=== PATIENT | male | born 1965 | race Caucasian/White ===

== ENCOUNTER → 2017-12-08 | Outpatient (CLI) | payer OTHER | LOC: CIMAGING 16:39 | PROVIDERS: ATTEND Family Medicine | DX: M50.321 Other cervical disc degeneration at C4-C5 level (principal); M43.12 Spondylolisthesis, cervical region | CPT/HCPCS: 72050-PO ==

== ENCOUNTER 2018-01-28 05:28 | Day surgery (SDC) | payer OTHER ==
[2018-01-28] MEDS ORDERED: ACETAMINOPHEN 500 MG TAB PO ONE (06:03)
[2018-01-28] MEDS ORDERED: ceFAZolin 2 GM/DEXTROSE 100 ML IV ONE (06:03)
[2018-01-28] MEDS ORDERED: LR 1,000 ML IV ONE (06:04)
[2018-01-28] MEDS ORDERED: LIDOCAINE 1% 300 MG/30 ML SDV ONE (06:32)
[2018-01-28] MEDS ORDERED: BUPIVACAINE 0.25% 10 ML SDV ONE ×2 (06:33→06:53)
--- NOTE | 2018-01-28 06:39 | PDHPUP ---
History & Physical Update H&P update statement: This history and physical update is based on an assessment of the patient which was completed after admission or registration (within 24 hours), but prior to the surgery/procedure. H&P update: H&P reviewed & patient examined, no change in patient's condition since H&P completed
[2018-01-28] MEDS ORDERED: MIDAZOLAM 2 MG/2 ML VIAL IVP ONE (06:57)
--- NOTE | 2018-01-28 07:00 | PDANEPAE ---
ANE History of Present Illness 52 year old male for right carpal tunnel release. Stopped smoking 2 weeks ago for surgery. History of depression. ANE Past Medical History - Cardiovascular History Hx Hypertension: Yes Hx Arrhythmias: No Hx Chest Pain: No Hx Coronary Artery / Peripheral Vascular Disease: No Hx CHF / Valvular Disease: No Hx Palpitations: No - Pulmonary History Hx COPD: Yes Hx Asthma/Reactive Airway Disease: No Hx Recent Upper Respiratory Infection: No Hx Oxygen in Use at Home: No Hx Sleep Apnea: Yes Sleep Apnea Screening Result - Last Documented: Positive Pulmonary History Comment: ADDY Positive, has Cpap but does not use. states has not smoked cigarettes for 1.5 weeks - Neurologic History Hx Cerebrovascular Accident: No Hx Seizures: No Hx Dementia: No Neurologic History Comment: occasional migraine. c-spine spinal stenosis. nerve pain & numbness in bilateral arms, R>L. occasional vertigo - Endocrine History Hx Diabetes: No - Renal History Hx Renal Disorders: No - Liver History Hx Hepatic Disorders: No - Neurological & Psychiatric Hx Hx Neurological and Psychiatric Disorders: Yes Neurological / Psychiatric History Comment: depression - Cancer History Hx Cancer: No - Congenital Disorder History Hx Congenital Disorders: No - GI History Hx Gastrointestinal Disorders: No - Other Health History Other Health History: missing teeth, in process of getting dentures, only has 5 teeth of his own - Chronic Pain History Chronic Pain: Yes (bilateral arms and knees) - Surgical History Prior Surgeries: seven knee surgeries. wrist surgery, left. hernia repair, left. pyloric stenosis repair as an . appendectomy ANE Review of Systems Review of systems is: negative Review of Systems: - Exercise capacity METS (RN): 4 METS ANE Patient History - Allergies Allergies/Adverse Reactions: unknown narcotic Allergy (Uncoded 01/18/18 16:00) Rash - Home Medications Home Medications: Citalopram 05/23/14 [Last Taken 01/26/18] Lisinopril 05/23/14 [Last Taken 01/26/18] Adult One Daily Multivit Tab 01/18/18 [Last Taken 01/21/18] Gabapentin 01/18/18 [Last Taken 12/30/17] Hydrocodone/Acetaminophen PRN 01/18/18 [Last Taken 12/31/17] Ibuprofen PRN 01/18/18 [Last Taken 12/30/17] Wellbutrin Sr 01/18/18 [Last Taken 01/26/18] - NPO status NPO Since - Liquids (Date): 01/27/18 NPO Since - Liquids (Time): 22:00 NPO Since - Solids (Date): 01/27/18 NPO Since - Solids (Time): 22:00 - Smoking Hx Smoking Status: Former smoker - Family Anes Hx Family Hx Anesthesia Complications: none ANE Labs/Vital Signs - Vital Signs Blood Pressure: 129/71 Heart Rate: 61 Respiratory Rate: 16 O2 Sat (%): 94 Height: 200.66 cm Weight: 117.934 kg ANE Physical Exam - Airway Neck exam: FROM Mallampati Score: Class 2 Mouth exam: poor dentition - Pulmonary Pulmonary: no respiratory distress - Cardiovascular Cardiovascular: regular rate and rhythym - ASA Status ASA Status: II ANE Anesthesia Plan Anesthesia Plan: MAC
[2018-01-28] MEDS ORDERED: fentaNYL 100 MCG/2 ML INJ ONE (07:04)
[2018-01-28] MEDS ORDERED: PROPOFOL/EMULSION 500 MG/50 ML BOTTLE IV ONE (07:06)
--- NOTE | 2018-01-28 08:15 | POSTOPPROG ---
Post Op Note Date of Operation: 01/28/18 Surgeon: Ann Olson Beam Warper: Emerita Amaya PA-C Anesthesiologist: Dr. Chou Anesthesia: IV Sedation, Local (Specify) Pre-op Diagnosis: Carpal tunnel syndrome Post-op Diagnosis: Carpal tunnel syndrome Procedure: Right carpal tunnel release Inf/Abcess present in the surg proc area at time of surgery?: No Depth: Superfical (Skin SQ) EBL: Minimal Plan Plan: 52 yo male s/p right carpal tunnel release - neuro checks - pain control - advance diet as tolerated - dc home today Exam Awake. Alert. PERRL. Speech fluent Following commands Incision with dressing c/d/i
[2018-01-28] MEDS ORDERED: HYDROCODONE/APAP 5/325 TAB PO PRN (08:16)
--- NOTE | 2018-01-28 08:25 | GOP ---
DATE OF OPERATION: 01/28/2018 SURGEON: Ann Olson DO NEUROSURGEON: Ann Olson DO PAYROLL MANAGER: JOSE Cueva PREOPERATIVE DIAGNOSIS: Severe carpal tunnel syndrome. POSTOPERATIVE DIAGNOSIS: Severe carpal tunnel syndrome. PROCEDURE PERFORMED: Right carpal tunnel release. FINDINGS: SPECIMENS: None. ESTIMATED BLOOD LOSS: Zero. INDICATIONS: This is a 52-year-old male who has severe carpal tunnel bilaterally, elected to move fo rward to the right, which is the worst, first. DESCRIPTION OF PROCEDURE: He was identified and consented. Sites were marked. Brought to the [facility] room. Anesthetized with a [place] block. An incision site had been marked preoperatively using an atomic markers just lateral to the thenar crease and using his digits as a marker. He was prepped an d draped in the usual sterile fashion. Incision was anesthetized with 1% lidocaine and 0.25% Marcain e plain. Incision was made with a 10 blade. A Heiss retractor was placed. A 15 blade was then used to cut through the flexor retinaculum. Once we were through the flexor retinaculum, we identified t he nerve and then used tenotomy scissors toward the palmar region until a [place] passed easily all the way into the palm and then more proximally until the [place] passed easily into the forearm, fully dec ompressing the nerve. We then copiously irrigated with over a liter of gentamicin-infused saline, cl osed the subcutaneous layer with 3-0 Vicryl pop-offs, the skin with 3-0 nylon. The wound dressed wit h fluffs and an Alejandro bandage. Patient tolerated the procedure well. No complications. FLUIDS: 500 mL crystalloid. URINE OUTPUT: None. DRAINS: None. COMPLICATIONS: None. /[id number]/MODL
--- NOTE | 2018-01-28 08:33 | POSTANESTH ---
Post Anesthetic Evaluation Cardiovascular Status: Normal, Stable Respiratory Status: Normal, Stable Level of Consciousness/Mental Status: Can Participate in Eval Pain Control: Adequate, Prn Tx Ordered Nausea/Vomiting Control: Adequate, Prn Tx Ordered Complications Possibly Related to Anesthesia: None Noted
[2018-01-28 09:14] VITALS: BP 110/70
== END 2018-01-28 09:20 | disposition home or self-care (01) ==
LOC: FSGY 05:28
PROVIDERS: ATTEND Neurological Surgery
PROC: 018 Peripheral Nervous System, Division (ICD-10-PCS; principal; 2018-01-28 07:15)
DX: G56.01 Carpal tunnel syndrome, right upper limb (principal); M43.12 Spondylolisthesis, cervical region; I10 Essential (primary) hypertension; J44.9 Chronic obstructive pulmonary disease, unspecified; G47.30 Sleep apnea, unspecified; F32.9 Major depressive disorder, single episode, unspecified; Z87.891 Personal history of nicotine dependence
CPT/HCPCS: J0690; J2704; J3010

== ENCOUNTER → 2018-02-28 | Outpatient (CLI) | payer OTHER | LOC: CIMAGING 12:19 | PROVIDERS: ATTEND Family Medicine | DX: M79.672 Pain in left foot (principal) | CPT/HCPCS: 73620-PO ==